=== PATIENT | female | born 1965 | race Caucasian/White ===

== ENCOUNTER → 2019-10-02 | Outpatient (CLI) | payer BC ==
--- NOTE | 2019-10-04 09:47 | CT ---
Procedure: CT LUNG SCREENING Exam Date: October 12, 2019. Ordering Provider: PHYSICIAN UNKNOWN Clinical Indication: PERSONAL HISTORY OF TOBACCO DEPENDENCE . Smoking cessation x10 years. Unknown pack year history This patient meets eligibility criteria for low-dose CT lung cancer screening. Comparison: None. Technique: Using a multislice scanner, sequential helical axial imaging was obtained in the thorax, 2.5 mm thickness, 2.5 mm separation, from the level of the thoracic inlet through the lung bases without IV contrast. A low dose protocol was utilized for BMI greater than or than 30: BMI: 51.6. CTDI: 2.94 mGy. 120. kVp. 45 mA. DLP 122 mGy-cm. 2D sagittal and coronal reconstructed images, 6.0 mm thickness, were obtained. This exam was performed according to our departmental dose optimization program which includes use of automated exposure control, adjustment of the mA and/or kV according to patient size and/or use of iterative reconstruction technique. Nodule measurements under 10 mm are given as mean value of 3 axes diameters. FINDINGS: Lungs and large airways: Small parenchymal blebs in a centrilobular distribution more prevalent in the upper lung parekh. Subpleural nodule less than 3 mm diameter in the posterior recess of the left lower lobe on series axial 2, image 105. Subpleural calcified nodule less than 3 mm diameter posterior left upper lobe on image 2/47; abutting the superior left major fissure. No abnormal nodules. No mass. No focal infiltrate. Pleura and space: Unremarkable. Mediastinum and abel: evaluation limited by low dose technique and lack of IV contrast. Calcifications in the left abel more than on the right. No abnormal nodules or dominant soft tissue mass. Heart and great vessels: Unremarkable. Chest wall, lower neck, axillae: Evaluation also limited by same factors as described above. Large patient body habitus no dominant soft tissue mass. Upper abdomen: Evaluation limited by low-dose technique and large patient body habitus. No free fluid or free air. Osseous structures: Evaluation limited by low dose MIP technique. 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 IMPRESSION: 1. No abnormal nodules and no mass. Minimal centrilobular emphysematous changes in the upper lung parekh. No acute infiltrate.. [facility] Best Practice Recommendations: please see below for Lung RADS category and FOLLOW-UP.* *Lung RADS category Category 1 - No nodule or definitely benign nodules (probability of malignancy less than 1%). Follow-up: Continue annual screening with Low Dose Chest CT in 12 months. Electronically signed by: Lalit Gotti MD 10/04/2019 9:46 AM CDT
== END ==
LOC: YCFC.O 09:58
PROVIDERS: ATTEND Nurse Practitioner Family
DX: Z87.891 Personal history of nicotine dependence (principal); J43.9 Emphysema, unspecified; R03.0 Elevated blood-pressure reading, without diagnosis of hypertension; E66.01 Morbid (severe) obesity due to excess calories; L83 Acanthosis nigricans; Z11.59 Encounter for screening for other viral diseases
CPT/HCPCS: 36415; 80053; 80061; 83036; 85025; 86803; 93225; G0297

== ENCOUNTER → 2019-12-27 | Outpatient (CLI) | payer BC | LOC: YCFC.O 11:37 | PROVIDERS: ATTEND Nurse Practitioner Family | DX: Z20.828 Contact with and (suspected) exposure to other viral communicable diseases (principal) ==

== ENCOUNTER → 2020-04-27 | Outpatient (CLI) | payer BC | LOC: YCFC.O 09:22 | PROVIDERS: ATTEND Nurse Practitioner Family | DX: R45.86 Emotional lability (principal) ==